=== PATIENT | female | born 1925 | race Two or more races ===

== ENCOUNTER 2016-04-18 09:12 | Emergency (ER) | payer MEDICARE, MEDICAID ==
[~2016-04-18] VITALS: Ht 162.6 cm; Wt 86.2 kg
[2016-04-18 10:30] LABS: Basophils # (auto) 0 uL; Basophils % (auto) 0.2 % (0.0-2.0); Eosinophils # (auto) 0.1 uL; Eosinophils % (auto) 1.9 % (0.0-7.0); Hemoglobin 13.9 g/dL (12.2-16.2); Lymphocytes # (auto) 2.4 uL; Lymphocytes % (auto) 34.3 % (10.0-50.0); Mean Corpuscular Hgb Conc. 32.4 g/dL (32.0-36.0); Mean Corpuscular Volume 89.4 fL (80.0-100.0); Mean Platelet Volume 10.5 fL (7.4-10.4); Monocytes # (auto) 0.3 uL; Monocytes % (auto) 4.9 % (0.0-12.0); Neutrophils # (auto) 4.1 uL; Neutrophils % (auto) 58.7 % (37.0-80.0); Platelet Count (auto) 176 10^3/uL (140-450); Red Cell Distribution Width 14.3 % (11.6-16.0)
[2016-04-18 10:41] LABS: Albumin 3.7 g/dL (3.4-5.0); Alkaline Phosphatase 82 U/L (45-117); Aspartate Aminotransferase 28 U/L (15-37); Bilirubin, Total 0.3 mg/dL (0.2-1.0); Blood Urea Nitrogen 19 mg/dL (7-18); Calcium 9.7 mg/dL (8.5-10.1); Carbon Dioxide 22 mmol/L (21-32); GFR African American 67 mL/min; GFR Non-African American 56 mL/min; Glucose 110 mg/dL (74-106); Magnesium 2.6 mg/dL (1.6-2.6); Total Protein 7.2 g/dL (6.4-8.2)
[2016-04-18 10:54] LABS: Anion Gap 9 (5-15); Chloride 112 mmol/L (98-107); Potassium 4.3 mmol/L (3.5-5.1); Sodium 143 mmol/L (136-145)
[2016-04-18] MEDS ORDERED: HYDROcodone-ACET 10/325MG TAB PO ONE (17:00)
[2016-04-18 19:55] VITALS: BP 160/82
== END 2016-04-18 20:00 | disposition home or self-care (01) ==
LOC: ER 09:37
DX: M54.16 Radiculopathy, lumbar region (principal); M48.06 Spinal stenosis, lumbar region; I10 Essential (primary) hypertension; M25.552 Pain in left hip; G89.29 Other chronic pain; M54.5 Low back pain; M19.90 Unspecified osteoarthritis, unspecified site
CPT/HCPCS: 36415; 72131; 72192; 80053; 83735; 84484; 85025; 93005